=== PATIENT | female | born 1975 | race Caucasian/White ===

== ENCOUNTER → 2018-01-26 | Outpatient (CLI) | payer BC ==
[~2018-01-26] MED LIST: FLUT16SP19 NS; HYDR-385 PO; IBU200 PO; IBUP-56 PO; KET10 PO; PER PO; SCOT TD
--- NOTE | 2018-01-26 14:46 | RADIOLOGY IMAGING REPORT ---
FACILITY: [facility] - [place] PATIENT NAME: FARHAT PEREZ : [id number] MR: [id number] V: [id number] EXAM DATE: [id number] ORDERING PHYSICIAN: SUKHDEV BRUSH TECHNOLOGIST: Marcelle Robles PROCEDURE:BILATERAL DIGITAL SCREENING MAMMOGRAM WITH CAD ASSISTED INTERPRETATION & 3D TOMOSYNTHESIS COMPARISON:Prior mammograms dated 01/07/17, 12/10/14, 09/10/14, 08/22/14 INDICATIONS:screening FINDINGS: Moderately heterogeneous fibroglandular tissue is seen throughout the breasts. The parenchymal pattern has remained stable allowing for difference in mammographic technique & patient positioning. Loosely grouped calcifications in the upper outer quadrant of the Right breast posterior third have remained stable. There is no evidence of malignant appearing mass, malignant appearing calcification or other secondary sign of malignancy in either breast. DIAGNOSTIC CATEGORY 2--BENIGN FINDING. RECOMMENDATIONS: ROUTINE MAMMOGRAM AND CLINICAL EVALUATION. IMPRESSION: BIRADS 2: Benign finding. No significant abnormality is seen. Dictated by: Yuliet Llamas M.D. on 01/26/2018 at 9:14 Transcribed by: VANESA on 01/26/2018 at 14:21 Approved by: Yuliet Llamas M.D. on 01/26/2018 at 14:45 [facility]
== END ==
LOC: MAMO 01:18
PROVIDERS: ATTEND Obstetrics & Gynecology
DX: Z12.31 Encounter for screening mammogram for malignant neoplasm of breast (principal)
CPT/HCPCS: 77063; 77067

== ENCOUNTER → 2018-11-22 | Outpatient (CLI) | payer BC, OTHER ==
[~2018-11-22] MED LIST changes: +IOPAMIDOL 76% 150 ML INFUS BTL 150 ML ONE
--- NOTE | 2018-11-22 10:25 | RADIOLOGY IMAGING REPORT ---
[place] [facility] [place] NAME: Radha Garcia : 1975 MR: [id number] V: [id number] EXAM DATE: ORDERING PHYSICIAN: JULIET WISE TECHNOLOGIST: Location: [facility] Patient: Radha Garcia : 1975 Visit/Account:[id number] Date of Sevice: 11/22/2018 CT ABDOMEN PELVIS W/ CON HISTORY: Generalized abdomen pain x1 month, constipation TECHNIQUE: Following administration of IV contrast contiguous axial images acquired through the abdom en/pelvis. Coronal and sagittal reformatting also performed.Dose Lowering Technique One of the following dose optimization techniques was utilized in the performance of this exam: Autom ated exposure control; adjustment of the mA and/or kV according to the patient's size; or use of an i terative reconstruction technique. Specific details can be referenced in the facility's radiology C T exam operational policy. CONTRAST: 75 mL Isovue-370 COMPARISON: None. FINDINGS: Visualized lung bases: Negative. Hepatobiliary: There is a 3.3 x 1.7 cm area of decreased attenuation in the left lobe the liver marce cent to the falciform ligament. This may represent an area of focal fatty infiltration. There are p ostsurgical changes from a cholecystectomy Spleen: Negative. Adrenals: Negative. Pancreas: Negative. Kidneys ureters or bladder: Negative. Genitalia: Uterus appears mildly prominent GI: There is a focal narrowing in the proximal descending colon best seen on image 38 of series 2 an d coronal image 36 of series 4 and image 104 of series 5 there is an additional narrowing just above this level as well in the proximal descending colon as seen on axial image 35 of series 2 there is a mild to moderate amount of fecal material seen in the right-sided colon. The appendix is visualized and does not appear inflamed Vessels/spaces/nodes: Negative. Bones/soft tissues: Negative. Additional findings: None pertinent. IMPRESSION: There are two focal narrowings in the proximal descending colon as described above. Although this co uld represent focal areas of spasm or inflammation possibility of annular lesions are not excluded. Colonoscopy is recommended for further evaluation There is a moderate amount of fecal material seen in the right-sided the colon Uterus appears mildly prominent There is a focal area of decreased attenuation in the left lobe of the liver adjacent to the falcifor m ligament which may represent an area of focal fatty infiltration although solid mass not totally ex cluded. This could be further evaluated with ultrasound or MR Report Dictated By: Yuliet Llamas MD at 11/22/2018 10:05 AM Report E-Signed By: Yuliet Llamas MD at 11/22/2018 10:20 AM WSN:[email or web address]
== END ==
LOC: CT 00:26
PROVIDERS: ATTEND Nurse Practitioner Family
DX: R10.9 Unspecified abdominal pain (principal)
CPT/HCPCS: 74177; Q9967

== ENCOUNTER → 2018-11-27 | Outpatient (CLI) | payer OTHER ==
[~2018-11-27] MED LIST changes: -IOPAMIDOL 76% 150 ML INFUS BTL 150 ML ONE
--- NOTE | 2018-11-27 09:41 | RADIOLOGY IMAGING REPORT ---
FACILITY: [facility] PATIENT NAME: Radha Garcia : 1975 MR: [id number] V: [id number] EXAM DATE: [id number] ORDERING PHYSICIAN: JULIET WISE TECHNOLOGIST: Location: [facility] Patient: Radha Garcia : 1975 Visit/Account:[id number] Date of Sevice: 11/27/2018 EXAMINATION: Ultrasound abdomen right upper quadrant HISTORY: Right upper quadrant pain. Liver density noted on CT on 11/22/2018. COMPARISON: CT abdomen and pelvis from 11/22/2018. FINDINGS: Gallbladder: Previous cholecystectomy without abnormality in the gallbladder fossa. Liver: Upper limits of normal in size measuring 16 cm in length. Homogeneous parenchyma without foca l lesion. There is no abnormality to correspond to the 3.3 x 1.7 cm lesion in the left lobe seen on CT. Portal vein is patent with hepatopetal flow. Liver surface is smooth. Common bile duct: Normal in size measuring 4 mm at the tigre hepatis. Pancreas: Negative. Right kidney: Normal in size and echogenicity, measuring 10.0 cm in length. No hydronephrosis. Upper abdominal aorta and IVC: Negative. Ascites: None. IMPRESSION: 1. 3.3 x 1.7 cm hepatic lesion seen on CT is not visualized by ultrasound. MRI of the liver without and with IV contrast is recommended for further evaluation. 2. Previous cholecystectomy. Report Dictated By: Luciana Hunt MD at 11/27/2018 9:34 AM Report E-Signed By: Luciana Hunt MD at 11/27/2018 9:38 AM WSN:MAC
== END ==
LOC: US 00:49
PROVIDERS: ATTEND Nurse Practitioner Family
DX: K76.9 Liver disease, unspecified (principal); Z90.49 Acquired absence of other specified parts of digestive tract
CPT/HCPCS: 76705

== ENCOUNTER → 2018-12-04 | Outpatient (CLI) | payer OTHER ==
[~2018-12-04] MED LIST changes: +GADOBENATE 529MG/1ML 15ML VIAL IVP ONE; +NS(*) 0.9% 50 ML BAG 50 ML ONE
--- NOTE | 2018-12-04 15:30 | RADIOLOGY IMAGING REPORT ---
FACILITY: [facility] [place]IENT NAME: Radha Garcia : 1975 MR: [id number] V: [id number] EXAM DATE: ORDERING PHYSICIAN: JULIET WISE TECHNOLOGIST: Location: [facility] Patient: Radha Garcia : 1975 Visit/Account:[id number] Date of Sevice: 12/04/2018 MR ABDOMEN W & W/O CON HISTORY: Liver lesion ADDITIONAL HISTORY: None. TECHNIQUE: TECHNIQUE: Multiplanar multisequence magnetic resonance imaging of the abdomen with a wi thout intravenous contrast. CONTRAST: 14 mL of MultiHance COMPARISON: CT abdomen and pelvis November 22, 2018 FINDINGS: Visualized lung bases: Grossly unremarkable. Liver: There is a geographic area of signal dropout on the opposed phase images along the inferior le ft lobe of the liver adjacent to the falciform ligament which would be consistent with fat no abnorma l contrast enhancement is identified within the liver Gallbladder: Prior cholecystectomy Bile ducts: Nondistended and unremarkable. Spleen: Negative. Adrenal glands: Negative. Pancreas: Negative. Kidneys: Negative. Vessels/spaces/nodes: No bulky adenopathy or ascities. Visualized GI: Grossly unremarkable. Bones/soft tissues: Unremarkable. IMPRESSION: The lesion noted on the recent CT demonstrating decreased attenuation along the inferior left lobe of the liver is consistent with focal fatty infiltration. Report Dictated By: Yuliet Llamas MD at 12/04/2018 2:51 PM Report E-Signed By: Yuliet Llamas MD at 12/04/2018 3:25 PM WSN:[email or web address]
== END ==
LOC: MRI 00:49
PROVIDERS: ATTEND Nurse Practitioner Family
DX: K76.0 Fatty (change of) liver, not elsewhere classified (principal)
CPT/HCPCS: 74183; A9577; J7050